=== PATIENT | female | born 2005 | race Caucasian/White ===

== ENCOUNTER 2025-03-28 13:49 | Emergency (ER) | payer MEDICARE, MEDICAID, SELFPAY ==
[2025-03-28 14:12] VITALS: PULSE 78; RESP 20; TEMP 36.5
--- NOTE | 2025-03-28 14:43 | ED_ITS ---
HPI - URI/Sore Throat General Chief Complaint: Upper Respiratory Infection Stated Complaint: Strep throat Source: patient, RN notes reviewed and old records reviewed Mode of arrival: ambulatory Limitations: no limitations History of Present Illness HPI Narrative: 19 year old female presents to [facility] accompanied by father and step mother with complaints stated by family that patient has complained of sore t hroat for the past day. Patient is autistic and has downs syndrome and is uncooperative with exam and vital signs unable to get blood pressure or pulse oximetry on patient. Patient throwing self on floor and kicking and hitting. Father reports that they have had recent strep in the home. Patient has not been eating as well as usual an has had some coughing. MD elicited complaint: sore throat Pertinent past history: asthma Onset (ago): day(s) (1) Severity: mild Description of mucous: clear Able to tolerate fluids by mouth: Yes Related Data Home Medications ?Medication ?Instructions ?Recorded ?Confirmed ?Last Taken ?Type albuterol sulfate 2.5 mg/3 mL mg 03/28/25 Unknown His tory (0.083 %) solution for nebulization albuterol sulfate 90 mcg/actuation inhalation 03/28/25 Unknown History aerosol inhaler budesonide-formoterol HFA 80 inhalation 03/28/25 Unkn own History mcg-4.5 mcg/actuation aerosol inhaler (Breyna) Allergies Allergy/AdvReac Type Severity Reaction Status Date / Time Cephalosporins Allergy Unknown Rash Verified 03/28/25 14:11 Review of Systems Review of Systems: CONSTITUTIONAL: Denies malaise, chills, sweats, or fever. EYES: Denies visual changes, redness, or discharge. ENT: Reports rhinorrhea, congestion, sinus pain, no otalgia and +sore throat. CARDIOVASCULAR: Denies chest pain, palpitations, or edema. RESPIRATORY: Reports no cough.? Denies dyspnea. GASTROINTESTINAL: Denies abdominal pain, nausea, vomiting, diarrhea SKIN: Denies rash or itching. MUSCULOSKELETAL: Denies myalgia. NEUROLOGIC: Denies headache. All systems reviewed & are unremarkable except as noted in HPI and below PMFSH Past Medical History Medical History (Updated 03/29/25 @ 22:32 by Jaquelin Dotson APRN) Abscess of gastrostomy button site Asthma Autism spectrum Down's syndrome Surgical History Surgical History (Updated 03/29/25 @ 22:22 by Jaquelin Dotson APRN) History of cataract surgery Heart valve replaced Social History Social History (Updated 03/29/25 @ 22:20 by Jaquelin Dotson APRN) Living arrangements: with family Gender identity (if verbalized by the patient): Male Comments At time of signature, agree with nursing past medical, surgical, social and family history. There is no relevant family history pertinent to the presenting complaint Exam Narrative: GENERAL: Well-appearing, well-nourished, and in no acute distress. HEAD: Normocephalic EYES: PERRLA, conjunctivae clear ENT: Nares clear, turbinates edematous and erythematous, clear discharge. Mucous membranes moist. TM pearly parham with dull light reflex bilaterally; no tragal tenderness. Oropharynx erythematous without lesions. Tonsils enlarged and with exudate, no drooling, no hoarseness, no trismus, uvula midline.post nasal drainage NECK: Supple. No lymphadenopathy CHEST: Clear to auscultation, breath sounds equal. No wheezing, rhonchi, rales, or stridor. No respiratory distress,cough noted no tachypnea noted or any retractions HEART: Regular rate and rhythm. No murmur heard. SKIN: Warm, dry, no rash. NEURO: Alert and oriented x3. PSYCH: Normal mood and affect uncooperative Course Course Level of Care: Express Care Visit Vital Signs Vital signs: Vital Signs Temperature 36.5 C 03/28/25 14:12 Pulse Rate 78 03/28/25 14:12 Respiratory Rate 20 03/28/25 14:12 Oxygen Delivery Room Air 03/28/25 14:12 Temperature 36.5 C 03/28/25 14:12 Pulse Rate 78 03/28/25 14:12 Respiratory Rate 20 03/28/25 14:12 Oxygen Delivery Room Air 03/28/25 14:12 reviewed MDM MDM Narrative Medical decision making narrative: Patient uncooperative with exam white exudates noted to tonsils with negative strep test culture sent. Will treat with oral antibiotic family report that patient can take Amoxicillin without problems with allergy to cephalosporins noted on record. Antipactory guidance and reasons to seek carei in ED reviewed with father with understanding voiced. Differential Diagnosis Differential Diagnosis: Differential diagnostic considerations for upper respiratory infection include upper respiratory infection, croup, otitis media, sinusitis, viral infection, bronchitis, influenza, pharyngitis, strep, uvulitis.?tonsillitis Lab Data MDM Lab Attestation statement: I personally reviewed the patient's lab results. Lab results narrative: strep screen negative culture sent Labs: Lab Results 03/28/25 Range/Units 14:50 POC Grp A Strep Screen Negative (Negative) reviewed Critical Care Time Critical Care Time Critical Care Time: No Discharge Plan Discharge Clinical Impression: Cough, Tonsillitis Patient Disposition: Home Condition: Stable Instructions: Antibiotic Form, Upper Respiratory Infection in Children (ED), Tonsillitis (ED) Additional Instructions: Increase fluids especially juices and water [id number] cough and cold medicine of your choice for your symptoms Zyrtec Claritin or Scarlet daily Continue your inhaler/nebulizer as directed heat to the face 20-30 minutes 4-6 times a day for pain Salt water gargles, throat lozenges or throat sprays as desired Antibiotic as directed--finished the medication If your symptoms persist, change or worsen significantly before you can contact your personal physician then please, without delay, go to the emergency department for further evaluation. Follow-up with PCP in 7-10 days or sooner if needed Patient Language: Luxembourgish Prescriptions: New amoxicillin 400 mg/5 mL suspension for reconstitution 500 mg PO BID 10 Days Qty: 125 0RF Rx Instructions: family reports that patient can take Amoxicillin without problems No Action albuterol sulfate 2.5 mg /3 mL (0.083 %) solution for nebulization albuterol sulfate 90 mcg/actuation HFA aerosol inhaler INHALATION budesonide-formoterol [Breyna] 80-4.5 mcg/actuation HFA aerosol inhaler INHALATION Follow-up/Referrals: UNKNOWN,DOCTOR [Primary Care Provider] Time of Disposition: 14:47 Quality [place] Coma Scale Eyes: Open Verbal: Nonsensical Speech Motor: Localizes Pain Justino Coma Total Score: 12
[2025-03-28 15:01] LABS: EDSTREPNEGPOS1 Negative (Negative)
--- OUTSIDE RECORDS SUMMARY | 2025-03-28 16:01 | XMS_ITS | Clinical Summary ---
Author Organization [facility] Address [address] [place] [address] Care Team Providers Care Licensed Direct Entry Midwife Name Role Phone Kit Zapien MD Unavailable [phone] Mera Benson OT Unavailable Unavailable Paty Winn MD Unavailable [phone] Diana Mccullough OT Unavailable Unavailable Pauline Gomes MD Primary Care Provider [phone] Allergies Active Allergy Reactions Criticality Noted Date Comments Cephalosporins Rash Medium Reaction: RASH, Medications famotidine (PEPCID) oral suspension 40 mg/5 mL Administer per tube 5 mL (40 mg total) 2 (two) times a day Active silver sulfadiazine (SILVADENE, SSD) 1 % cream Apply 1 g topically daily 05/23/19 21 Active miscellaneous medical supply [facility] [place] 3 inch 3M Transpore Tape , 5 rolls per month to be used around Gastrostomy Button Site 5 each 12 06/20/19 23 Active miscellaneous medical supply liquid Please send Osmolite Enteral formula. 8 cans per day given via enteral feeding pump through G-tube. Okay to substitute Osmolite 1.2 as needed. 11 09/17/19 23 Active nystatin powderIndicatio ns:cutaneous candidiasis Apply to g-button and surrounding skin twice a day x 7 days, then continue to apply daily to prevent yeast re-occurrence. 15 g 3 10/08/19 24 Active albuterol 2.5 mg /3 mL (0.083 %) nebulizer solution Give a treatment before each vest therapy 4-6 times per day during times of illness. 150 mL 1 05/03/19 25 Active multivitamin tablet Administer per tube 1 tablet daily Active polyethylene glycol (MIRALAX) 17 gram/dose bulk powderIndicatio ns:constipation Administer per tube 17 g daily as needed for constipation Active albuterol HFA (PROVENTIL HFA,VENTOLIN HFA,PROAIR HFA) 90 mcg/actuation inhaler GIVE 2 PUFFS WITH SPACER OR 1 NEBULIZER TREATMENT EVERY 4-6 HOURS DURING TIMES OF ILLNESS. 13.4 each 1 03/13/20 25 Active Breyna 80-4.5 mcg/actuation inhalerIndicati ons:Moderate persistent asthma without complication USE 2 PUFFS TWICE DAILY, RINSE MOUTH WITH WATER AFTER USE, DO NOT SWALLOW 30.9 each 1 03/20/20 25 Active budesonide-form oteroL (Symbicort) 80-4.5 mcg/actuation inhalerIndicati ons:Moderate persistent asthma without complication Inhale 2 puffs 2 (two) times a day Rinse mouth with water after use. Do not swallow. 1 each 2 12/22/19 25 2024 Discontinued albuterol HFA (PROVENTIL HFA,VENTOLIN HFA,PROAIR HFA) 90 mcg/actuation inhaler GIVE 2 PUFFS WITH SPACER OR 1 NEBULIZER TREATMENT EVERY 4-6 HOURS DURING TIMES OF ILLNESS. 13.4 each 1 12/28/19 25 2024 Discontinued amoxicillin-cla vulanate (AUGMENTIN-ES) suspension 600-42.9 mg/5 mL Administer per tube 6.9 mL (825 mg of amoxicillin total) 2 (two) times a day for 10 days 7 ml twice a day 138 mL 03/15/20 25 2024 Active Problems Problem Noted Date Diagnosed Date Myopia of both eyes with astigmatism 03/01/2024 Anisometropia 03/01/2024 Hyperactive behavior 08/12/2022 08/12/2022 Developmental disability 08/12/2022 023 Attention deficit hyperactivity disorder 023 08/12/2022 At risk for hypothyroidism 05/16/2022 Pseudophakia of both eyes 05/06/2022 Hyperopia of both eyes 05/06/2022 Dehydration 03/31/2021 History of adrenal insufficiency 12/10/2020 Assessment & Plan (01/05/2021 3:08 PM CDT): See A&P for pneumonia. Assessment & Plan (01/04/2021 5:07 PM CDT): See A&P for pneumonia. Assessment & Plan (01/03/2021 12:11 PM CDT): See A&P for pneumonia. Assessment & Plan (01/02/2021 7:32 PM CDT): See A&P for pneumonia. Assessment & Plan (01/01/2021 7:57 PM CDT): See A&P for pneumonia. 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 Parents have been keeping site open to air and cleaning it with gauze covering it during admission. Currently, no drainage appreciated with patient's site initially covered during morning's exam and found open to air. ENT consulted Assessment & Plan (01/16/2020 1:43 PM CDT): Patient decannulated in 2015 with subsequent small TEF noted in 06/2019. Parents have been keeping site open to air and cleaning it with gauze covering it during admission. Currently, no drainage appreciated with patient's site initially covered during morning's exam and found open to air - ENT c/s for further evaluation and care Assessment & Plan (01/15/2020 2:17 PM CDT): Patient decannulated in 2015 with subsequent small TEF noted in 06/2019. Parents have been keeping site open to air and cleaning it with gauze covering it during admission. Currently, no drainage appreciated with patient's site initially covered during morning's exam and found open to air during encounter during this afternoon. - ENT c/s for further evaluation and care. Constipation 01/15/2020 Assessment & Plan (06/12/2020 10:22 AM RESEARCH & INSIGHTS EXECUTIVE): See a/p above Assessment & Plan (06/11/2020 7:01 AM RESEARCH & INSIGHTS EXECUTIVE): See a/p above Assessment & Plan (06/09/2020 7:51 AM RESEARCH & INSIGHTS EXECUTIVE): See a/p above Assessment & Plan (06/08/2020 11:00 AM RESEARCH & INSIGHTS EXECUTIVE): See a/p above Assessment & Plan (01/17/2020 10:57 AM CDT): Now with diarrhea secondary to formula change and antibitoics - Hold home colace Assessment & Plan (01/16/2020 1:49 PM CDT): Now with diarrhea, hold home colace Secondary adrenal insufficiency 05/25/2019 Assessment & Plan (01/10/2020 10:44 AM CDT): Continue physiologic dosing, wean per pharmacy. Continue wean plan every 3 days per pharmacy recommendations. Does not require ACTH stim test prior to discharge, but does require refills for stress dose steroids. Family has previously completed stress dose teaching. - Follow up with endo after discharge Assessment & Plan (01/09/2020 2:47 PM CDT): Continue physiologic dosing, wean per pharmacy. Continue wean plan every 3 days per pharmacy recommendations. Does not require ACTH stim test prior to discharge, but does require refills for stress dose steroids. Family has previously completed stress dose teaching. - Follow up with endo after discharge Assessment & Plan (01/08/2020 3:09 PM CDT): Continue physiologic dosing, wean per pharmacy. Continue wean plan every 3 days per pharmacy recommendations. Does not require ACTH stim test prior to discharge, but does require refills for stress dose steroids. Family has previously completed stress dose teaching. - Contact endo before discharge Assessment & Plan (01/07/2020 2:23 PM CDT): Continue physiologic dosing, wean per pharmacy. Continue wean plan every 3 days per pharmacy recommendations. Does not require ACTH stim test prior to discharge, but does require refills for stress dose steroids. Family has previously completed stress dose teaching. - Contact endo before discharge Assessment & Plan (01/06/2020 1:46 PM CDT): Continue physiologic dosing, wean per pharmacy. Continue wean plan every 3 days per pharmacy recommendations. - ACTH stim test prior to discharge Assessment & Plan (01/05/2020 12:47 PM CDT): Continue physiologic dosing, wean per pharmacy. Next wean due 01/05. Assessment & Plan (12/31/2019 10:46 AM CDT): Continue physiologic dosing, wean per pharmacy. Assessment & Plan (12/30/2019 5:35 PM CDT): Continue physiologic dosing, wean per pharmacy. Assessment & Plan (12/29/2019 1:37 PM CDT): Patient with secondary adrenal insufficiency. S/p stress dose hydrocortisone. Now physiologic, PO HCT 5 mg/m2 (12/28- ) - TSH, Assessment & Plan (05/25/2019 2:12 PM RESEARCH & INSIGHTS EXECUTIVE): 13 yo with a history of Trisomy 21, AV canal and PDA s/p repair, CLD and tracheomalacia previously trach-dependent, LADONNA, and prior ECMO cannulation in 2017 2/2 septic shock and respiratory failure admitted for respiratory failure requiring intubation with concern for septic shock. Extubated 2/3. Corey had history of chronic inhaled steroid use that likely have caused the HPA axis suppression. I recommend to use stress dose of hydrocortisone at the time of illness. Please use 20 mg PO TID. In addition caregivers will need education on Solucortef teaching prior to discharge. Corey has history of abnormal thyroid function in the past. Please obtain thyroid studies prior to discharge. Thank you for allowing us to participate in Misti's care. If you have any questions, please do Not hesitate to contact us. Adrenal insufficiency 05/23/2019 Assessment & Plan (01/17/2020 10:31 AM CDT): See plan for respiratory failure Assessment & Plan (01/16/2020 1:48 PM CDT): See plan for respiratory failure Assessment & Plan (07/20/2019 10:52 AM CDT): Hx of adrenal insufficiency requiring stress dose steroids when ill. Cortisol level 6.2 in ED around 7 pm 07/17. Discussed with endocrine. If pt remains afebrile and continues to improve clinically, no stress dose hydrocortisone needed. Assessment & Plan (05/25/2019 11:57 AM RESEARCH & INSIGHTS EXECUTIVE): Pt required steroids when acutely ill in the PICU. On 05/06, Cortisol <1.5. s/p Physiologic steroids (05/17-2); stress dose (05/10-2), (05/06-05/09); physiologic (05/09-05/10). - f/u Endo recs - completed low dose ACTH stim test 05/24 - obtain ACTH level, TSH, free T4 today Assessment & Plan (05/24/2019 10:21 AM RESEARCH & INSIGHTS EXECUTIVE): Pt required steroids when acutely ill in the PICU. On 05/06, Cortisol <1.5. s/p Physiologic steroids (05/17-2); stress dose (05/10-2/), (05/06-05/09); physiologic (05/09-05/10). - Endo c/s - low dose ACTH stim test 05/24 Assessment & Plan (05/23/2019 5:52 PM RESEARCH & INSIGHTS EXECUTIVE): Pt required steroids when acutely ill in the PICU. On 05/06, Cortisol <1.5. s/p Physiologic steroids (05/17-2); stress dose (05/10-2/), (05/06-05/09); physiologic (05/09-05/10). - low dose ACTH stim test 05/24 Childhood behavior problems 05/22/2019 Assessment & Plan (06/12/2020 10:22 AM RESEARCH & INSIGHTS EXECUTIVE): - home valproate 250 mg PO TID (mood stabilizer) - Use of non violent restraints (ie Mittens) to prevent removal of supplemental oxygen or G-tube Assessment & Plan (06/11/2020 7:01 AM RESEARCH & INSIGHTS EXECUTIVE): - home valproate 250 mg PO TID (mood stabilizer) - Use of non violent restraints (ie Mittens) to prevent removal of supplemental oxygen or G-tube Assessment & Plan (06/10/2020 6:57 AM RESEARCH & INSIGHTS EXECUTIVE): - home valproate 250 mg PO TID (mood stabilizer) - Use of non violent restraints (ie Mittens) to prevent removal of supplemental oxygen or G-tube Assessment & Plan (06/09/2020 7:51 AM RESEARCH & INSIGHTS EXECUTIVE): - home valproate 250 mg PO TID (mood stabilizer) - Use of non violent restraints (ie Mittens) to prevent removal of supplemental oxygen or G-tube Assessment & Plan (06/08/2020 10:56 AM RESEARCH & INSIGHTS EXECUTIVE): - home valproate 250 mg PO TID (mood stabilizer) - Use of non violent restraints (ie Mittens) to prevent removal of supplemental oxygen or G-tube Assessment & Plan (07/20/2019 10:58 AM CDT): Hx of trisomy 21 and developmental delay. Has ongoing issues with trying to get out of bed and pulling on medical equipment. - home depakote (for behavior, no seizure hx) - 1:1 sitter - [place] bed, mittens on bilateral hands Assessment & Plan (06/17/2019 1:42 PM RESEARCH & INSIGHTS EXECUTIVE): T21, Developmental Delay - Home depakote (for behaviors, no seizure hx) - s/p Precedex (06/07-; 06/11-06/12) - 1:1 sitter - Benadryl 25mg via gtube PRN for agitation (may give 2nd dose for total of 50mg) Assessment & Plan (05/25/2019 11:56 AM RESEARCH & INSIGHTS EXECUTIVE): Pt with trisomy 21. Pt continues to try to pull out nasal canula. Requires 1:1 sitter to provide redirection when pt tries to pull out nasal canula. - home Depakene 125 mg AM/PM, 250 mg qHS (for behavior) Assessment & Plan (05/24/2019 10:22 AM RESEARCH & INSIGHTS EXECUTIVE): Pt with trisomy 21. Pt continues to try to pull out nasal canula. Requires 1:1 sitter to provide redirection when pt tries to pull out nasal canula. - home Depakene 125 mg AM/PM, 250 mg qHS (for behavior) Assessment & Plan (05/23/2019 11:49 AM RESEARCH & INSIGHTS EXECUTIVE): Pt with trisomy 21. Pt continues to try to pull out nasal canula. Requires 1:1 sitter to provide redirection when pt tries to pull out nasal canula. - home Depakene 125 mg AM/PM, 250 mg qHS (for behavior) Assessment & Plan (05/22/2019 1:33 PM RESEARCH & INSIGHTS EXECUTIVE): Pt with trisomy 21. - home Depakene 125 mg AM/PM, 250 mg qHS (for behavior) Gastrostomy tube dependent ([facility]) 05/22/2019 Assessment & Plan (01/05/2021 3:07 PM CDT): See A&P for pneumonia. Assessment & Plan (01/04/2021 5:06 PM CDT): See A&P for pneumonia. Assessment & Plan (01/03/2021 12:11 PM CDT): See A&P for pneumonia. Assessment & Plan (01/02/2021 7:31 PM CDT): See A&P for pneumonia. Assessment & Plan (01/01/2021 7:57 PM CDT): See A&P for pneumonia. Assessment & Plan (06/11/2020 7:01 AM RESEARCH & INSIGHTS EXECUTIVE): Will continue home bolus feeds as follows: - 8am: Osmolite 1.0, 2 cans + 240 ml water - 12pm: Osmolite 1.0, 2 cans + 240 ml water - 4pm: Osmolite 1.0, 2 cans + 240 ml water - 8pm: Osmolite 1.0, 1 can + 240 ml water - prune juice BID, miralax 17g qd - Pepcid 20mg BID Assessment & Plan (06/10/2020 7:48 AM RESEARCH & INSIGHTS EXECUTIVE): Will continue home bolus feeds as follows: - 8am: Osmolite 1.0, 2 cans + 240 ml water - 12pm: Osmolite 1.0, 2 cans + 240 ml water - 4pm: Osmolite 1.0, 2 cans + 240 ml water - 8pm: Osmolite 1.0, 1 can + 240 ml water - prune juice BID, miralax 17g qd - Pepcid 20mg BID Due to absence of H2O from feeds yesterday patient is mildly dehydrated. Please administer 2 boluses of H2O through her G tube today to replete. Give 480ml after her 8 am feed over 1-2 hours. Give 480 ml after her noon feed over 1-2 hours. Will closely monitor hydration status throughout the day. Assessment & Plan (06/09/2020 7:51 AM RESEARCH & INSIGHTS EXECUTIVE): Patient tolerating home feeds without issue. Will continue home bolus feeds as follows: - 8am: Osmolite 1.0, 2 cans + 240 ml water - 12pm: Osmolite 1.0, 2 cans + 240 ml water - 4pm: Osmolite 1.0, 2 cans + 240 ml water - 8pm: Osmolite 1.0, 1 can + 240 ml water - prune juice BID, miralax 17g qd - Pepcid 20mg BID Assessment & Plan (06/08/2020 10:56 AM RESEARCH & INSIGHTS EXECUTIVE): Patient tolerating home feeds without issue. Will continue home bolus feeds as follows: - 8am: Osmolite 1.0, 2 cans + 240 ml water - 12pm: Osmolite 1.0, 2 cans + 240 ml water - 4pm: Osmolite 1.0, 2 cans + 240 ml water - 8pm: Osmolite 1.0, 1 can + 240 ml water - prune juice BID, miralax 17g qd - Pepcid 20mg BID Assessment & Plan (01/17/2020 10:30 AM CDT): Continue home medication and regimen - G tube feeds qid (2 cans osmolite + 240 ml H2O tid, 1 can osmolite + 240 ml H2O daily) - Lansoprazole Assessment & Plan (01/16/2020 1:44 PM CDT): Continue home medication and regimen - G tube feeds qid (2 cans osmolite + 240 ml H2O tid, 1 can osmolite + 240 ml H2O daily) - Lansoprazole Assessment & Plan (01/15/2020 2:23 PM CDT): Continue home medication and regimen - G tube feeds qid (2 cans osmolite + 240 ml H2O tid, 1 can osmolite + 240 ml H2O daily) - Lansoprazole Assessment & Plan (01/10/2020 10:48 AM CDT): Continue G tube feeds, switch to bolus feeds with osmolite. 2 cans + 240ml water for 3 feeds; 1 can with +240ml water for 1 feed - Prune juice BID lactulose 30ml q8h, Docusate BID - Prevacid 15mg daily - KCL 20 mEq wean to daily today - RFP in am - Mon/Thurs weights Assessment & Plan (01/09/2020 2:50 PM CDT): Continue G tube feeds, will touch base with family tomorrow about switching to osmolite - Promote 105mL/hr + 25mL/hr free water for 16h - Prune juice BID lactulose 30ml q8h, Docusate BID - Prevacid 15mg daily - KCL 20 mEq q8hr - Mon/Thurs weights Assessment & Plan (01/08/2020 3:10 PM CDT): Continue G tube feeds, will touch base with family tomorrow about switching to osmolite - Promote 105mL/hr + 25mL/hr free water for 16h - Prune juice BID lactulose 30ml q8h, Docusate BID - Prevacid 15mg daily - KCL 20 mEq q8hr - Mon/urs weights Assessment & Plan (01/07/2020 2:26 PM CDT): Continue G tube feeds - Promote 105mL/hr + 25mL/hr free water for 16h - Prune juice BID lactulose 30ml q8h, Docusate BID - Prevacid 15mg daily - KCL 20 mEq q8hr - Daily weights Assessment & Plan (01/06/2020 1:48 PM CDT): Continue G tube feeds - Promote 105mL/hr + 25mL/hr free water for 16h - Prune juice BID lactulose 30ml q8h, Docusate BID - Prevacid 15mg daily - KCL 20 mEq q8hr - Daily weights Assessment & Plan (01/05/2020 12:53 PM CDT): Continue G tube feeds - Promote 105mL/hr + 25mL/hr free water for 16h - Prune juice BID lactulose 30ml q8h, Docusate BID - Prevacid 15mg daily - KCL 20 mEq q8hr Assessment & Plan (12/31/2019 10:46 AM CDT): Continue G tube feeds - 84 mL/hr + 20mL/hr H2O for 24 hours - PO KCL BID - Prevacid 15mg daily - Bowel regimen: Docusate BID, Lactulose TID Assessment & Plan (12/30/2019 5:34 PM CDT): Continue G tube feeds - 84 mL/hr + 20mL/hr H2O for 24 hours - PO KCL BID - Prevacid 15mg daily - Bowel regimen: Docusate BID, Lactulose TID Assessment & Plan (07/20/2019 10:54 AM CDT): Tolerating home g-tube feeds. No acute concerns. - Pediasure enteral 1.0 home feeds with 240 ml flush x4 - prevacid while here (omeprazole daily at home) Assessment & Plan (06/17/2019 1:43 PM RESEARCH & INSIGHTS EXECUTIVE): - Home feeds: Pediasure 2 cans TID (08, 12, 20) and 1 can at 16, + 240ml H20 flush with each feed - home omeprazole --> lansoprazole while IP Assessment & Plan (05/25/2019 11:59 AM RESEARCH & INSIGHTS EXECUTIVE): - Home g-tube feeds: Pediasure 2 cans BID, 1 can BID, 240mL H2O with each - Home Docusate, Senna BID, Lactulose QID - Lansoprazole daily - daily wts Assessment & Plan (05/24/2019 10:23 AM RESEARCH & INSIGHTS EXECUTIVE): - Home g-tube feeds: Pediasure 2 cans BID, 1 can BID, 240mL H2O with each - Home Docusate, Senna BID, Lactulose QID - Lansoprazole daily Assessment & Plan (05/23/2019 11:50 AM RESEARCH & INSIGHTS EXECUTIVE): - Home g-tube feeds: Pediasure 2 cans BID, 1 can BID, 240mL H2O with each - Home Docusate, Senna BID, Lactulose QID - Lansoprazole daily Assessment & Plan (05/22/2019 1:34 PM RESEARCH & INSIGHTS EXECUTIVE): - Home g-tube feeds: Pediasure 2 cans BID, 1 can BID, 240mL H2O with each - Home Docusate, Senna BID, Lactulose QID - Lansoprazole daily Gastroesophageal reflux disease without esophagi tis 08/23/2018 08/12/2022 Moderate persistent asthma without complication 02/10/2018 Assessment & Plan (05/25/2019 11:59 AM RESEARCH & INSIGHTS EXECUTIVE): - Albuterol 2.5 mg q4h - continue home Symbicort BID Assessment & Plan (05/24/2019 10:23 AM RESEARCH & INSIGHTS EXECUTIVE): - Albuterol 2.5 mg q4h - continue home Symbicort BID Assessment & Plan (05/23/2019 11:50 AM RESEARCH & INSIGHTS EXECUTIVE): - Albuterol 2.5 mg q4h - continue home Symbicort BID Assessment & Plan (05/22/2019 1:28 PM RESEARCH & INSIGHTS EXECUTIVE): - Albuterol 2.5 mg q4h - continue home Symbicort BID Global developmental delay 11/18/2016 Assessment & Plan (01/17/2020 10:28 AM CDT): History of hospital delirium, disorientation on top of chronic issues of autism, developmental delay, communication barriers, and history of self harm behaviors. Still having persistent agitation and will follow up with psychiatry outpatient. - Depakote 125mg am and noon, 250 mg qhs Melatonin qHS - 1:1 Sitter, [place] bed, mittens - Tylenol PRN - Risperidone 1mg nightly inpatient (wean outpatient with schedule below) - Follow up with [facility] psychiatry outpatient Week 1 after discharge: risperidone 1 mg nightly Week 2 after discharge: risperidone 0.5 mg nightly Week 3 after discharge: risperidone 0.25 mg nightly Week 4 after discharge: stop Assessment & Plan (01/16/2020 1:44 PM CDT): History of hospital delirium, disorientation on top of chronic issues of autism, developmental delay, communication barriers, and history of self harm behaviors. Still having persistent agitation and will follow up with psychiatry outpatient. - Depakote 250 mg qhs Melatonin qHS- clarify home Depakote regimen at present - 1:1 Sitter, [place] bed, mittens - Tylenol PRN - Risperidone 1mg nightly inpatient (wean outpatient with schedule below) - Follow up with [facility] psychiatry outpatient Week 1 after discharge: risperidone 1 mg nightly Week 2 after discharge: risperidone 0.5 mg nightly Week 3 after discharge: risperidone 0.25 mg nightly Week 4 after discharge: stop Assessment & Plan (01/15/2020 2:26 PM CDT): History of hospital delirium, disorientation on top of chronic issues of autism, developmental delay, communication barriers, and history of self harm behaviors. Still having persistent agitation and will follow up with psychiatry outpatient. - Depakote 250 mg qhs Melatonin qHS - 1:1 Sitter, [place] bed, mittens - Tylenol PRN - Risperidone 1mg nightly (wean outpatient with schedule below) - Follow up with [facility] psychiatry outpatient Week 1 after discharge: risperidone 1 mg nightly Week 2 after discharge: risperidone 0.5 mg nightly Week 3 after discharge: risperidone 0.25 mg nightly Week 4 after discharge: stop Assessment & Plan (01/10/2020 10:45 AM CDT): History of hospital delirium, disorientation on top of chronic issues of autism, developmental delay, communication barriers, and history of self harm behaviors. Still having persistent agitation and will follow up with psychiatry outpatient. - Depakote 125mg q6hrs Melatonin qHS - 1:1 Sitter, [place] bed, mittens - Tylenol PRN - Risperidone 1mg nightly (wean outpatient) - Clonidine 0.1mg prn for sleep, agitation - Continue consult to psychiatry - Follow up with [facility] psychiatry outpatient Assessment & Plan (01/09/2020 2:49 PM CDT): History of hospital delirium, disorientation on top of chronic issues of autism, developmental delay, communication barriers, and history of self harm behaviors. Still having persistent agitation and and may benefit from psychiatric evaluation. - Depakote 125mg q6hrs Melatonin qHS - 1:1 Sitter, [place] bed, mittens - Tylenol PRN - Risperidone 1mg nightly - Clonidine 0.1mg prn for sleep, agitation - Continue consult to psychiatry - Follow up with [facility] psychiatry outpatient Assessment & Plan (01/08/2020 3:10 PM CDT): History of hospital delirium, disorientation on top of chronic issues of autism, developmental delay, communication barriers, and history of self harm behaviors. Still having persistent agitation and and may benefit from psychiatric evaluation. - Depakote 125mg q6hrs Melatonin qHS - 1:1 Sitter, [place] bed, mittens - Tylenol PRN - Risperidone 1mg nightly - Clonidine 0.1mg prn for sleep, agitation - Continue consult to psychiatry Assessment & Plan (01/07/2020 2:26 PM CDT): History of hospital delirium, disorientation on top of chronic issues of autism, developmental delay, communication barriers, and history of self harm behaviors. Still having persistent agitation and and may benefit from psychiatric evaluation. - Depakote 125mg q6hrs Melatonin qHS - 1:1 Sitter, [place] bed, mittens - Tylenol PRN - Risperidone 1mg nightly - Clonidine 0.1mg prn for sleep, agitation - Continue consult to psychiatry Assessment & Plan (01/06/2020 1:49 PM CDT): Limited cooperation with exam, see above. Contributes to hospital delirium, disorientation. Still having persistent agitation and and may benefit from psychiatric evaluation. - Depakote 125mg q6hrs Risperidone 0.25mg BID Melatonin qHS - 1:1 Sitter, [place] bed, mittens - Tylenol PRN - HOLD risperidone wean - Consult to psychiatry for residential plan Assessment & Plan (01/05/2020 12:52 PM CDT): Limited cooperation with exam, see above. 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 Echo in 06/30 stable with mild MR and trivial TR Assessment & Plan (01/09/2020 2:50 PM CDT): History of complete AV canal s/p repair. Echo in 3/20 stable with mild MR and trivial TR Assessment & Plan (01/08/2020 3:10 PM CDT): History of complete AV canal s/p repair. Echo in 3/20 stable with mild MR and trivial TR Assessment & Plan (01/07/2020 2:26 PM CDT): History of complete AV canal s/p repair. Echo in 3/20 stable with mild MR and trivial TR Assessment & Plan (01/06/2020 1:48 PM CDT): History of complete AV canal s/p repair. Echo in 3/20 stable with mild MR and trivial TR Assessment & Plan (01/05/2020 12:49 PM CDT): History of complete AV canal s/p repair. Echo in 3/20 stable with mild MR and trivial TR Assessment & Plan (12/31/2019 10:47 AM CDT): History of complete AV canal s/p repair. Echo in 3/20 stable with mild MR and trivial TR Assessment & Plan (05/25/2019 11:57 AM RESEARCH & INSIGHTS EXECUTIVE): Hx of AV canal and PDA s/p repair. - ECHO 05/03: Stable - Mild MR, trivial TR. Mildly dilated RA/RV with nl RV and LV function - EKG 05/05 without significant change from baseline - d/c lasix today Assessment & Plan (05/24/2019 10:22 AM RESEARCH & INSIGHTS EXECUTIVE): Hx of AV canal and PDA s/p repair. - ECHO 05/03: Stable - Mild MR, trivial TR. Mildly dilated RA/RV with nl RV and LV function - EKG 05/05 without significant change from baseline - wean lasix to 20 mg daily today Assessment & Plan (05/23/2019 5:53 PM RESEARCH & INSIGHTS EXECUTIVE): Hx of AV canal and PDA s/p repair. - ECHO 05/03: Stable - Mild MR, trivial TR. Mildly dilated RA/RV with nl RV and LV function - EKG 05/05 without significant change from baseline - wean lasix to 20 mg daily Assessment & Plan (05/22/2019 1:36 PM RESEARCH & INSIGHTS EXECUTIVE): Hx of AV canal and PDA s/p repair. - ECHO 05/03: Stable - Mild MR, trivial TR. Mildly dilated RA/RV with nl RV and LV function - EKG 05/05 without significant change from baseline Obstructive sleep apnea syndrome 03/24/2008 Assessment & Plan (01/17/2020 10:30 AM CDT): Abnormal sleep study on 10/31/15, confounded by difficulty tolerating testing and suboptimal results but found evidence of at least mild obstructive sleep apnea (OAHI 3.1/hr, OAHI 2.7/hr), intermittent mild-moderate oxygen desaturations (average SpO2 93%, isidro 82%), relative hypoxemia, and very poor sleep efficiency (SE 28%). No desaturations overnight, transition to RA. Has not tolerated CPAP in the past. Will continue to monitor O2 saturations off O2 for at least 48 hours prior to DC Assessment & Plan (01/16/2020 1:42 PM CDT): Abnormal sleep study on 10/31/15, confounded by difficulty tolerating testing and suboptimal results but found evidence of at least mild obstructive sleep apnea (OAHI 3.1/hr, OAHI 2.7/hr), intermittent mild-moderate oxygen desaturations (average SpO2 93%, isidro 82%), relative hypoxemia, and very poor sleep efficiency (SE 28%). No desaturations overnight, transition to RA and consider 1L NC nightly as needed for LADONNA. Has not tolerated CPAP in the past. Will continue to monitor Assessment & Plan (01/15/2020 1:59 PM CDT): Abnormal sleep study on 10/31/15, confounded by difficulty tolerating testing and suboptimal results but found evidence of at least mild obstructive sleep apnea (OAHI 3.1/hr, OAHI 2.7/hr), intermittent mild-moderate oxygen desaturations (average SpO2 93%, isidro 82%), relative hypoxemia, and very poor sleep efficiency (SE 28%). No desaturations overnight, on 2 L NC. Has not tolerated CPAP in the past. Will continue to monitor Assessment & Plan (01/10/2020 10:44 AM CDT): No desaturations overnight and patient doesn't tolerate CPAP overnight. Assessment & Plan (01/09/2020 2:48 PM CDT): No desaturations overnight and patient doesn't tolerate CPAP overnight. Assessment & Plan (01/08/2020 3:09 PM CDT): No desaturations overnight and patient doesn't tolerate CPAP overnight. Assessment & Plan (01/07/2020 2:24 PM CDT): No desaturations overnight and patient doesn't tolerate CPAP overnight. Assessment & Plan (01/06/2020 1:46 PM CDT): No desaturations overnight and patient doesn't tolerate CPAP overnight. Assessment & Plan (01/05/2020 12:47 PM CDT): No desaturations overnight and patient doesn't tolerate CPAP overnight. 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 Down syndrome 03/24/2008 Assessment & Plan (01/10/2020 10:45 AM CDT): See acute on chronic resp failure Assessment & Plan (01/09/2020 2:50 PM CDT): See acute on chronic resp failure Assessment & Plan (01/08/2020 3:10 PM CDT): See acute on chronic resp failure Assessment & Plan (01/07/2020 2:26 PM CDT): See acute on chronic resp failure Assessment & Plan (01/06/2020 1:48 PM CDT): See acute on chronic resp failure Assessment & Plan (01/05/2020 12:49 PM CDT): See acute on chronic resp failure Assessment & Plan (12/31/2019 10:44 AM CDT): See acute on chronic resp failure Assessment & Plan (12/30/2019 5:33 PM CDT): See acute on chronic resp failure Assessment & Plan (07/20/2019 10:55 AM CDT): Stable, no acute concerns. Resolved Problems Problem Noted Date Diagnosed Date Resolved Date Acute hypoxemic respiratory failure 12/10/2020 06/16/2022 Assessment & Plan (01/05/2021 3:07 PM CDT): See A&P for pneumonia. Assessment & Plan (01/04/2021 5:06 PM CDT): See A&P for pneumonia. Assessment & Plan (01/03/2021 12:11 PM CDT): See A&P for pneumonia. Assessment & Plan (01/02/2021 7:32 PM CDT): See A&P for pneumonia. Assessment & Plan (01/01/2021 7:57 PM CDT): See A&P for pneumonia. Assessment & Plan (12/15/2020 2:49 PM CDT): 15 y.o. female with acute on chronic respiratory failure in the setting of presumed PNA, based on fevers, hypoxemia, CBC results, and persistent opacification on CXR. Has required escalated respiratory support and is now currently intubated. CXRs with improved upper airway aeration but persistent left lower lobe opacity which has been seen during illnesses in the past on imaging. With interval imaging while well showing improved aeration in this lobe, it is likely a dependent area of secretion and subsequent atelectasis. 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 Prior to repeat sleep study it is recommended by ENT that she have outpatient tracheocutaneous fistula closure and DLB. Once tracheocutaneous fistula is closed then she should have a swallow study and repeat sleep study. - Seen by ENT, defer intervention to outpatient setting as patient is clinically ill Assessment & Plan (06/11/2020 11:24 AM RESEARCH & INSIGHTS EXECUTIVE): Last sleep study: 10/31/15 (has not tolerated CPAP in the past). Prior to repeat sleep study it is recommended by ENT that she have outpatient tracheocutaneous fistula closure and DLB. Once tracheocutaneous fistula is closed then she should have a swallow study and repeat sleep study. - Seen by ENT, defer intervention to outpatient setting as patient is clinically ill Assessment & Plan (06/09/2020 7:51 AM RESEARCH & INSIGHTS EXECUTIVE): - Seen by ENT, defer intervention to outpatient setting as patient is clinically ill Assessment & Plan (06/08/2020 11:00 AM RESEARCH & INSIGHTS EXECUTIVE): - Seen by ENT, defer intervention to outpatient setting as patient is clinically ill Aspiration pneumonia 01/18/2020 020 MRSA pneumonia 12/15/2019 01/05/2020 Left lower lobe pneumonia 12/06/2019 Assessment & Plan (01/10/2020 10:44 AM CDT): - Continue respiratory regimen with vest q4 - Finished treatment with Vancomycin this morning - Discontinue PICC Assessment & Plan (01/09/2020 2:49 PM CDT): - Continue respiratory regimen with vest q4 - Continue treatment with Ceftriaxone (finishes today) and Vancomycin (cornebacterium susceptible), covering broadly (will complete 01/08) Assessment & Plan (01/08/2020 3:10 PM CDT): - Continue respiratory regimen with vest q4 - Continue treatment with Ceftriaxone and Vancomycin (cornebacterium susceptible), covering broadly (will complete 01/08) Assessment & Plan (01/07/2020 2:24 PM CDT): - Continue respiratory regimen with vest q4 - Continue treatment with Ceftriaxone and Vancomycin (cornebacterium susceptible), covering broadly (will complete 01/07) Assessment & Plan (01/06/2020 1:47 PM CDT): - Continue respiratory regimen with vest q4 - Continue treatment with Ceftriaxone and Vancomycin (cornebacterium susceptible), covering broadly - Hold cough assist since not helping Assessment & Plan (01/05/2020 12:48 PM CDT): - Continue respiratory regimen with vest q4 - Continue treatment with Ceftriaxone and Vancomycin (cornebacterium susceptible) - Hold cough assist since not helping Septic shock 12/06/2019 01/25/2020 Acute respiratory failure wi th hypoxia and hypercapnia (CMS/HCC) 12/06/2019 03/05/2021 COVID-19 12/06/2019 03/05/2021 Assessment & Plan (01/10/2020 10:45 AM CDT): Patient recovering from acute resp failure secondary to COVID 19. No longer concerns for active viral transmission. Now on RA - Continue vest treatments every 4 hours Assessment & Plan (01/09/2020 2:50 PM CDT): Patient recovering from acute resp failure secondary to COVID 19. No longer concerns for active viral transmission. Now on RA - Continue vest treatments every 4 hours Assessment & Plan (01/08/2020 3:10 PM CDT): Patient recovering from acute resp failure secondary to COVID 19. No longer concerns for active viral transmission. Now on RA - Continue vest treatments every 4 hours Assessment & Plan (01/07/2020 2:26 PM CDT): Patient recovering from acute resp failure secondary to COVID 19. No longer concerns for active viral transmission. Now on RA - Continue vest treatments every 4 hours Assessment & Plan (01/06/2020 1:48 PM CDT): Patient recovering from acute resp failure secondary to COVID 19. No longer concerns for active viral transmission. Now on RA - Continue vest treatments every 4 hours Assessment & Plan (01/05/2020 12:50 PM CDT): Patient recovering from acute resp failure secondary to COVID 19. No longer concerns for active viral transmission. Now on RA - Continue vest treatments every 4 hours Assessment & Plan (12/31/2019 10:44 AM CDT): Patient recovering from acute resp failure secondary to COVID 19 - S/p Ceftriaxone (12/18- 12/22) x 5 days, bactrim (12/15-12/18) -+COVID-19, febrile 12/15-12/17 - 9/2 tracheal aspirate MRSA, s/p vancomycin bactrim 12/10-12/16 -S/p Levaquin 12/05-12/12 & 12/16-/, Remdesivir 12/05-12/09. - 12/18 Urine culture (final no growth), blood culture (final no growth) Assessment & Plan (12/30/2019 5:35 PM CDT): Patient recovering from acute resp failure secondary to COVID 19 - discontinue COVID labs (TEG, ferritin) - S/p Ceftriaxone (12/18- 12/22) x 5 days, bactrim (12/15-12/18) -+COVID-19, persistently febrile 12/15-12/17 - 9/2 tracheal aspirate MRSA, s/p vancomycin bactrim 12/10-12/16 -S/p Levaquin 12/05-12/12 & 12/16-/, Remdesivir 12/05-8/29. - 12/18 Urine culture (final no growth), blood culture (final no growth) Sleep disturbance 06/12/2019 06/16/2022 Tracheitis 05/22/2019 01/25/2020 Assessment & Plan (05/25/2019 11:59 AM RESEARCH & INSIGHTS EXECUTIVE): TA 05/12 grew Corynebacterium striatum. s/p Vanc x5 days (05/12-05/17), Levaquin (05/02-05/09, 05/12-05/15), Vanc (05/02-05/03). Continue to monitor. Assessment & Plan (05/24/2019 10:23 AM RESEARCH & INSIGHTS EXECUTIVE): TA 05/12 grew Corynebacterium striatum. s/p Vanc x5 days (05/12-05/17), Levaquin (05/02-05/09, 05/12-05/15), Vanc (05/02-05/03). Continue to monitor. Assessment & Plan (05/23/2019 11:50 AM RESEARCH & INSIGHTS EXECUTIVE): TA 05/12 grew Corynebacterium striatum. s/p Vanc x5 days (05/12-05/17), Levaquin (05/02-05/09, 05/12-05/15), Vanc (05/02-05/03). Continue to monitor. Assessment & Plan (05/22/2019 1:26 PM RESEARCH & INSIGHTS EXECUTIVE): TA 05/12 grew Corynebacterium striatum. s/p Vanc x5 days (05/12-05/17), Levaquin (05/02-05/09, 05/12-05/15), Vanc (05/02-05/03). Continue to monitor. Drug habituation ([facility]) 05/22/2019 1 06/01/2020 Assessment & Plan (05/25/2019 11:58 AM RESEARCH & INSIGHTS EXECUTIVE): S/p intubation. S/p precedex. JOANN scores 0. - s/p Morphine (d/c 05/24) - PRN PO ativan 2mg q4h - JOANN scores q4h Assessment & Plan (05/24/2019 10:22 AM RESEARCH & INSIGHTS EXECUTIVE): S/p intubation. S/p precedex. JOANN scores 0. - d/c Morphine today - PRN PO ativan 2mg q4h - JOANN scores q4h Assessment & Plan (05/23/2019 11:50 AM RESEARCH & INSIGHTS EXECUTIVE): S/p intubation. S/p precedex. - wean to Morphine 5mg q12h today - PRN PO ativan 2mg q4h - JOANN scores q4h Assessment & Plan (05/22/2019 1:31 PM RESEARCH & INSIGHTS EXECUTIVE): S/p intubation. S/p precedex. - wean to Morphine 5mg q8h today - PRN PO ativan 2mg q4h - JOANN scores q4h Pneumonia due to infectious organism 05/05/2019 03/05/2021 Assessment & Plan (01/05/2021 3:07 PM CDT): Corey White is 15 year old F with a history of T21, developmental delay, AV canal defect s/p repair, adrenal insufficiency, previous trach dependence (s/p repair of tracheocutaneous fistula and multiple prior admissions for respiratory failure), and G-tube dependence who presented with fevers, diarrhea, and desaturations to the 80s at home. She was treated for presumed aspiration pneumonia in the PICU. Transferred to the floor on 12/31. Neuro: - Off precedex (d/c 12/30) off morphine (d/c'd 12/27) - Weaned to Risperidone q24 01/03, with last day of 01/05. Last dose today. - Depakote 250 mg TID for mood stabilization - tylenol PRN - Agitation PRN: Ativan 2mg q6h PRN - Continue PT/OT Resp: RA while awake today, 1LNC this morning while sleeping; continue to wean as tolerated, s/p HFNC - Extubated 12/23 - weaned CPT to BID 01/05, which is same as her home schedule. - Symbicort BID, albuterol q4 s/p Diamox 12/26 - Suction and supportive care as needed. CV: hx of AV canal (s/p repair) - Monitor blood pressures daily. FEN/ GI: - Diet: Bolus feeds 4x daily - see diet order - Home feeding regimen: Osmolite 1.0 2 cans + 240cc water @ 0800/1200/1600, and 1 can + 240 cc water at 2000 - Prevacid daily, KCl 20 mEq daily 12/20 - s/p Lasix 5mg IV daily 12/20-12/25 - Bowel regimen: None, monitor ongoing stool output ID: Pneumonia vs sepsis (has grown MRSA and Corynebacterium in the past) - 12/15 BioFire assay +Strep pyogenes 12/19 blood cx x3, UA, trach aspirate - NGTD 12/26 BCx (NGTD), UCx (UA clean) - s/p Cefepime 12/26-12/28, Unasyn (12/17-12/23), vanc (12/13-12/17), cefepime (12/15-12/16), cipro, Unasyn (12/10 - 12/13) - US chest 12/13: small, complex loculated pleural effusion in L lung base - ID following - If spikes fever, will obtain blood and sputum cultures, start abx. - Nystatin for diaper rash. Heme: - s/p Enoxaparin BID (12/15-01/01) - anti Xa level therapeutic Endo: history of secondary adrenal insufficiency - Physiologic steroids (12/16-12/18, 12/19-12/24) - s/p stress dose steroids 12/11-12/16 s/p insulin gtt 0.06 units/kg/hr - Confirmed with father patient is NOT on daily steroids at home, only stress dosing when ill. Derm: Patient with erythematous raised papules/patches c/w prior history of MRSA colonization and frequent picking. - Silvadene BID - Nystatin cream for katie diaper rash Ext: Cold L foot - likely vasospasm, s/p vascular surgery consult; no intervention indicated. - Bearhuggers to feet bilaterally. Ophtho: Irregular borders of pupils IV access: none. Dispo planning: - wean off oxygen while awake, and asleep preferably. - CPT BID per home regimen. - walking and sitting up. Assessment & Plan (01/04/2021 5:07 PM CDT): Corey White is 15 year old F with a history of T21, developmental delay, AV canal defect s/p repair, adrenal insufficiency, previous trach dependence (s/p repair of tracheocutaneous fistula and multiple prior admissions for respiratory failure), and G-tube dependence who presented with fevers, diarrhea, and desaturations to the 80s at home. She was treated for presumed aspiration pneumonia in the PICU. Transferred to the floor on 12/31. Neuro: - Off precedex (d/c 12/30) off morphine (d/c'd 12/27) - Weaned to Risperidone q24 01/03, with last day of 01/05 - Depakote 250 mg TID for mood stabilization - tylenol PRN - Agitation PRN: Ativan 2mg q6h PRN - Continue PT/OT Resp: RA while awake today, 1LNC during nap; continue to wean as tolerated, s/p HFNC - Extubated 12/23, s/p VDR, PC/SIMV - weaned CPT to TID 01/04. Continue to wean towards home schedule of BID. - Symbicort BID, albuterol q4 s/p Diamox 12/26 - Suction and supportive care as needed. CV: hx of AV canal (s/p repair) - Monitor blood pressures daily. FEN/ GI: - Diet: Bolus feeds 4x daily - see diet order - Home feeding regimen: Osmolite 1.0 2 cans + 240cc water @ 0800/1200/1600, and 1 can + 240 cc water at 2000 - Prevacid daily, KCl 20 mEq daily 12/20 - s/p Lasix 5mg IV daily 12/20-12/25 - Bowel regimen: None, monitor ongoing stool output ID: Pneumonia vs sepsis (has grown MRSA and Corynebacterium in the past) - 12/15 BioFire assay +Strep pyogenes 12/19 blood cx x3, UA, trach aspirate - NGTD 12/26 BCx (NGTD), UCx (UA clean) - s/p Cefepime 12/26-12/28, Unasyn (12/17-12/23), vanc (12/13-12/17), cefepime (12/15-12/16), cipro, Unasyn (12/10 - 12/13) - US chest 12/13: small, complex loculated pleural effusion in L lung base - ID following - If spikes fever, will obtain blood and sputum cultures, start abx. Heme: - s/p Enoxaparin BID (12/15-01/01) - anti Xa level therapeutic Endo: history of secondary adrenal insufficiency - Physiologic steroids (12/16-12/18, 12/19-12/24) - s/p stress dose steroids 12/11-12/16 s/p insulin gtt 0.06 units/kg/hr - Confirmed with father patient is NOT on daily steroids at home, only stress dosing when ill. Derm: Patient with erythematous raised papules/patches c/w prior history of MRSA colonization and frequent picking. - Silvadene BID - Nystatin cream for katie diaper rash Ext: Cold L foot - likely vasospasm, s/p vascular surgery consult; no intervention indicated. - Bearhuggers to feet bilaterally. Ophtho: Irregular borders of pupils IV access: none. Dispo planning: - wean off oxygen while awake, and asleep preferably. - CPT BID per home regimen. - walking and sitting up. Assessment & Plan (01/03/2021 12:11 PM CDT): Corey White is 15 year old F with a history of T21, developmental delay, AV canal defect s/p repair, adrenal insufficiency, previous trach dependence (s/p repair of tracheocutaneous fistula and multiple prior admissions for respiratory failure), and G-tube dependence who presented with fevers, diarrhea, and desaturations to the 80s at home. She was treated for presumed aspiration pneumonia in the PICU. Transferred to the floor on 12/31. Neuro: - Off precedex (d/c 12/30) off morphine (d/c'd 12/27) - Weaned to Risperidone q24 01/03, with last day of 01/05 - Depakote 250 mg TID for mood stabilization - tylenol PRN - Agitation PRN: Ativan 2mg q6h PRN - Continue PT/OT Resp: 1LNC wean as tolerated, s/p HFNC - Extubated 12/23, s/p VDR, PC/SIMV - Continue CPT q6 today while requiring oxygen. Continue to wean towards home schedule of BID. - Symbicort BID, albuterol q4 s/p Diamox 12/26 - Suction and supportive care as needed. CV: hx of AV canal (s/p repair) - Monitor blood pressures daily. FEN/ GI: - Diet: Bolus feeds 4x daily - see diet order - Home feeding regimen: Osmolite 1.0 2 cans + 240cc water @ 0800/1200/1600, and 1 can + 240 cc water at 2000 - Prevacid daily, KCl 20 mEq daily 12/20 - s/p Lasix 5mg IV daily 12/20-12/25 - Bowel regimen: None, monitor ongoing stool output ID: Pneumonia vs sepsis (has grown MRSA and Corynebacterium in the past) - 12/15 BioFire assay +Strep pyogenes 12/19 blood cx x3, UA, trach aspirate - NGTD 12/26 BCx (NGTD), UCx (UA clean) - s/p Cefepime 12/26-12/28, Unasyn (12/17-12/23), vanc (12/13-12/17), cefepime (12/15-12/16), cipro, Unasyn (12/10 - 12/13) - US chest 12/13: small, complex loculated pleural effusion in L lung base - ID following - If spikes fever, will obtain blood and sputum cultures, start abx. Heme: - s/p Enoxaparin BID (12/15-01/01) - anti Xa level therapeutic Endo: history of secondary adrenal insufficiency - Physiologic steroids (12/16-12/18, 12/19-12/24) - s/p stress dose steroids 12/11-12/16 s/p insulin gtt 0.06 units/kg/hr - Confirmed with father patient is NOT on daily steroids at home, only stress dosing when ill. Derm: Patient with erythematous raised papules/patches c/w prior history of MRSA colonization and frequent picking. - Silvadene BID - Nystatin cream for katie diaper rash Ext: Cold L foot - likely vasospasm, s/p vascular surgery consult; no intervention indicated. - Bearhuggers to feet bilaterally. Ophtho: Irregular borders of pupils IV access: note. Assessment & Plan (01/02/2021 7:31 PM CDT): Corey White is 15 year old F with a history of T21, developmental delay, AV canal defect s/p repair, adrenal insufficiency, previous trach dependence (s/p repair of tracheocutaneous fistula and multiple prior admissions for respiratory failure), and G-tube dependence who presented with fevers, diarrhea, and desaturations to the 80s at home. She was treated for presumed aspiration pneumonia in the PICU. Transferred to the floor on 12/31. Neuro: - Off precedex (d/c 12/30) off morphine (d/c'd 12/27) - Risperidone q12 12/31 - Wean risperidone tomorrow to q 24 (q24-->3days-->stop) - Depakote 250 mg TID for mood stabilization - tylenol PRN - Agitation PRN: Ativan 2mg q6h PRN - PT/OT Resp: 1LNC, s/p HFNC - Extubated 12/23, s/p VDR, PC/SIMV - CPT weaned to q6 today. Continue to wean towards home schedule of BID. - Symbicort BID, albuterol q4 s/p Diamox 12/26 - Suction and supportive care as needed. CV: hx of AV canal (s/p repair) - Monitor blood pressures daily. FEN/ GI: - Diet: Bolus feeds 4x daily - see diet order - Home feeding regimen: Osmolite 1.0 2 cans + 240cc water @ 0800/1200/1600, and 1 can + 240 cc water at 2000 - Prevacid daily, KCl 20 mEq daily 12/20 - s/p Lasix 5mg IV daily 12/20-12/25 - Bowel regimen: None, monitor ongoing stool output ID: Pneumonia vs sepsis (has grown MRSA and Corynebacterium in the past) - 12/15 BioFire assay +Strep pyogenes 12/19 blood cx x3, UA, trach aspirate - NGTD 12/26 BCx (NGTD), UCx (UA clean) - s/p Cefepime 12/26-12/28, Unasyn (12/17-12/23), vanc (12/13-12/17), cefepime (12/15-12/16), cipro, Unasyn (12/10 - 12/13) - US chest 12/13: small, complex loculated pleural effusion in L lung base - ID following - If spikes fever, will obtain blood and sputum cultures, start abx. Heme: - s/p Enoxaparin BID (12/15-01/01) - anti Xa level therapeutic Endo: history of secondary adrenal insufficiency - Physiologic steroids (12/16-12/18, 12/19-12/24) - s/p stress dose steroids 12/11-12/16 s/p insulin gtt 0.06 units/kg/hr - Confirmed with father patient is NOT on daily steroids at home, only stress dosing when ill. Derm: Patient with erythematous raised papules/patches c/w prior history of MRSA colonization and frequent picking. - Silvadene BID - Nystatin cream for katie diaper rash Ext: Cold L foot - likely vasospasm, s/p vascular surgery consult; no intervention indicated. - Bearhuggers to feet bilaterally. Ophtho: Irregular borders of pupils Will dc IV after RFP today. Assessment & Plan (01/01/2021 7:56 PM CDT): Corey White is 15 year old F with a history of T21, developmental delay, AV canal defect s/p repair, adrenal insufficiency, previous trach dependence (s/p repair of tracheocutaneous fistula and multiple prior admissions for respiratory failure), and G-tube dependence who presented with fevers, diarrhea, and desaturations to the 80s at home. She was treated for presumed aspiration pneumonia in the PICU. Transferred to the floor on 12/31. Neuro: - Off precedex (d/c 12/30) off morphine (d/c'd 12/27) - Risperidone q12 dec'd 12/31 - Wean risperidone q3 days (q24-->3days-->stop) - Depakote 250 mg TID for mood stabilization - tylenol PRN - Agitation PRN: Ativan 2mg q6h PRN - PT/OT Resp: 1LNC, s/p HFNC - Extubated 12/23, s/p VDR, PC/SIMV - CPT q4h- - wean as tolerated. Home schedule is BID. - Symbicort BID, albuterol q4 s/p Diamox 12/26 - Suction and supportive care as needed. CV: hx of AV canal (s/p repair) - Monitor blood pressures daily. FEN/ GI: - Diet: Bolus feeds 4x daily - see diet order - Home feeding regimen: Osmolite 1.0 2 cans + 240cc water @ 0800/1200/1600, and 1 can + 240 cc water at 2000 - Prevacid daily, KCl 20 mEq daily 12/20 - s/p Lasix 5mg IV daily 12/20-12/25 - Bowel regimen: None, monitor ongoing stool output ID: Pneumonia vs sepsis (has grown MRSA and Corynebacterium in the past) - 12/15 [employer] assay +Strep pyogenes 12/19 blood cx x3, UA, trach aspirate - NGTD 12/26 BCx (NGTD), UCx (UA clean) - s/p Cefepime 12/26-12/28, Unasyn (12/17-12/23), vanc (12/13-12/17), cefepime (12/15-12/16), cipro, Unasyn (12/10 - 12/13) - US chest 12/13: small, complex loculated pleural effusion in L lung base - ID following - If spikes fever, will obtain blood and sputum cultures, start abx. Heme: - D/C Enoxaparin BID (12/15-01/01) - anti Xa level therapeutic Endo: history of secondary adrenal insufficiency - Physiologic steroids (12/16-12/18, 12/19-12/24) - s/p stress dose steroids 12/11-12/16 s/p insulin gtt 0.06 units/kg/hr - Confirmed with father patient is NOT on daily steroids at home, only stress dosing when ill. Derm: Patient with erythematous raised papules/patches c/w prior history of MRSA colonization and frequent picking. - Silvadene BID Ext: Cold L foot - likely vasospasm, s/p vascular surgery consult; no intervention indicated. - Bearhuggers to feet bilaterally. Ophtho: Irregular borders of pupils Assessment & Plan (05/25/2019 11:59 AM RESEARCH & INSIGHTS EXECUTIVE): LLL pneumonia. s/p Vanc x5 days (05/12-05/17), Levaquin (05/02-05/09, 05/12-05/15), Vanc (05/02-05/03), Flagyl (05/02). - wean O2 as tolerated - continue to monitor respiratory status Assessment & Plan (05/24/2019 10:23 AM RESEARCH & INSIGHTS EXECUTIVE): LLL pneumonia. s/p Vanc x5 days (05/12-05/17), Levaquin (05/02-05/09, 05/12-05/15), Vanc (05/02-05/03), Flagyl (05/02). - wean O2 as tolerated - continue to monitor respiratory status Assessment & Plan (05/23/2019 11:50 AM RESEARCH & INSIGHTS EXECUTIVE): LLL pneumonia. s/p Vanc x5 days (05/12-05/17), Levaquin (05/02-05/09, 05/12-05/15), Vanc (05/02-05/03), Flagyl (05/02). - wean O2 as tolerated - continue to monitor respiratory status Assessment & Plan (05/22/2019 1:22 PM RESEARCH & INSIGHTS EXECUTIVE): LLL pneumonia. s/p Vanc x5 days (05/12-05/17), Levaquin (05/02-05/09, 05/12-05/15), Vanc (05/02-05/03), Flagyl (05/02). - wean O2 as tolerated - continue to monitor respiratory status Rhinovirus infection 05/05/2019 021 Assessment & Plan (06/12/2020 10:23 AM RESEARCH & INSIGHTS EXECUTIVE): Corey Gillespie is a 14yoF w PMH of trisomy 21, AV canal defect s/p repair, tracheocutaneous fistula who presented in respiratory failure due to rhino/enterovirus+. Patient is stable on the floor. Saturations are appropriate on 0.5-1L NC. Discussed with Jeanette (father) need for small amount of oxygen at home. Jeanette has necessary supplies at home. Disposition is home this evening pending transportation. - NC, wean O2 as tolerated - Continuous pulse oximetry - vest q6h, albuterol PRN - Echo prior to discharge to r/o pulmonary HTN from possible chronic LADONNA Assessment & Plan (06/11/2020 7:01 AM RESEARCH & INSIGHTS EXECUTIVE): Corey Gillespie is a 14yoF w PMH of trisomy 21, AV canal defect s/p repair, tracheocutaneous fistula who presented in respiratory failure due to rhino/enterovirus+. Patient is stable on the floor. Saturations are appropriate on 0.5-1L NC. Will continue to wean supplemental oxygen as able. Tolerated weaning during day yesterday but continued to have desaturation events while sleeping. - NC, wean O2 as tolerated - Continuous pulse oximetry - vest q6h, albuterol PRN Assessment & Plan (06/10/2020 6:57 AM RESEARCH & INSIGHTS EXECUTIVE): Corey Gillespie is a 14yoF w PMH of trisomy 21, AV canal defect s/p repair, tracheocutaneous fistula who presented in respiratory failure due to rhino/enterovirus+. Patient is stable on the floor. Saturations are appropriate on 0.5-1L NC. Will continue to wean supplemental oxygen as able. Tolerated weaning during day yesterday but continued to have desaturation events while sleeping. - NC, wean O2 as tolerated - Continuous pulse oximetry - vest q6h, albuterol PRN Assessment & Plan (06/09/2020 7:51 AM RESEARCH & INSIGHTS EXECUTIVE): Corey Gillespie is a 14yoF w PMH of trisomy 21, AV canal defect s/p repair, tracheocutaneous fistula who presented in respiratory failure due to rhino/enterovirus+. Patient is stable on the floor. Saturations are appropriate on 0.5-1L NC. Will continue to wean supplemental oxygen as able. - NC, wean O2 as tolerated - Continuous pulse oximetry - vest q6h, albuterol PRN Assessment & Plan (06/08/2020 10:57 AM RESEARCH & INSIGHTS EXECUTIVE): Corey Gillespie is a 14yoF w PMH of trisomy 21, AV canal defect s/p repair, tracheocutaneous fistula who presented in respiratory failure due to rhino/enterovirus+. Patient has since completed a course of antibiotics, transitioned from stress to physiologic steroid dosing and was extubated to HFNC and then transitioned to NC. Patient is stable on the floor. Saturations are appropriate on 1.5-2L NC. Will continue to wean supplemental oxygen as able. - NC, wean O2 as tolerated - Continuous pulse oximetry - vest q6h, albuterol PRN Assessment & Plan (07/20/2019 10:54 AM CDT): See assessment and plan for acute on chronic respiratory failure. Assessment & Plan (05/25/2019 11:59 AM RESEARCH & INSIGHTS EXECUTIVE): Multiplex (/) positive for rhino/enterovirus. Rhino/enterovirus URI. - CPT q4h - wean O2 as tolerated Assessment & Plan (05/24/2019 10:23 AM RESEARCH & INSIGHTS EXECUTIVE): Multiplex (/) positive for rhino/enterovirus. Rhino/enterovirus URI. - CPT q4h - wean O2 as tolerated Assessment & Plan (05/23/2019 11:50 AM RESEARCH & INSIGHTS EXECUTIVE): Multiplex (/) positive for rhino/enterovirus. Rhino/enterovirus URI. - CPT q4h - wean O2 as tolerated Assessment & Plan (05/22/2019 1:24 PM RESEARCH & INSIGHTS EXECUTIVE): Multiplex (/) positive for rhino/enterovirus. Rhino/enterovirus URI. - CPT q4h - wean O2 as tolerated Acute respiratory failure wi th hypoxia due to MRSA tracheitis 05/02/2019 01/25/2020 Assessment & Plan (01/17/2020 10:56 AM CDT): Mistiarmand Becerril Javed is a 14 y/o with a PMH of trisomy 21, AV canal defect s/p repair, LADONNA, tracheomalacia, adrenal insufficiency admited on 01/11 for acute on chronic hypoxic respiratory failure following recent discharge for complications from COVID-19, possibly secondary to aspiration at home. Previous tracheostomy site/stoma and sputum with MRSA growth, started on bactrim and augmentin. Stress dose hydrocortisone initiated on 01/12. Now improving on antibiotics and off of supplemental oxygen. - Augmentin BID Bactrim BID (projected completion date 01/18) - Hydrocortisone 6mg TID, wean as below for after discharge - Stress dose teaching with family prior to discharge - CPT BID CA BID (emulate home regimen) - Albuterol prn HCTZ wean: 01/16 6 mg po tid 01/19 3 mg po tid 01/22 2 mg po tid 01/25 1 mg po tid 01/28 d/c hydrocortisone Assessment & Plan (01/16/2020 1:47 PM CDT): Corey Gillespie is a 14 y/o with a PMH of trisomy 21, AV canal defect s/p repair, LADONNA, tracheomalacia, adrenal insufficiency admited on 01/11 for acute on chronic hypoxic respiratory failure following recent discharge for complications from COVID-19 Patient was discharged home on 01/10 on RA following her admission. However, was found to have increased secretions and oxygen requirements the morning of 01/11 resulting in presentation to [facility] ER and subsequent PICU admission on 15 L HFNC and FiO2 requirement at 70%. Has since been weaned to room air. Previous tracheostomy site/stoma and sputum with MRSA growth. Stress dose hydrocortisone initiated on 01/12. - Augmentin BID Bactrim BID (projected completion date 01/18)--appreciate ID recs - Hydrocortisone 5 mg/m2 q8h endo c/s prior to discharge to teaching and wean plan - Stress dose teaching with family prior to discharge - CPT QID CA QID Assessment & Plan (01/15/2020 2:25 PM CDT): Corey Gillespie is a 14 y/o with a PMH of trisomy 21, AV canal defect s/p repair, LADONNA, tracheomalacia, adrenal insufficiency admited on 01/11 for acute on chronic hypoxic respiratory failure following recent discharge for complications from COVID-19 Patient was discharged home on 01/10 on RA following her admission. However, was found to have increased secretions and oxygen requirements the morning of 10/1 resulting in presentation to [facility] ER and subsequent PICU admission on 15 L HFNC and FiO2 requirement at 70%. Has since been weaned to 2L via NC. Previous tracheostomy site/stoma and sputum with MRSA growth. Currently on day 3 of antibiotics Stress dose hydrocortisone initiated on 01/12 with physiologic change prior to transfer to floor. - Augmentin BID Bactrim BID (projected completion date 01/18)--appreciate ID recs - Hydrocortisone 5 mg/m2 q8h endo c/s prior to discharge to teaching and wean plan - 2L NC, wean as tolerated - CPT QID CA QID Assessment & Plan (07/20/2019 11:15 AM CDT): Corey is a 13 year old with history of Trisomy 21, AV canal s/p repair at 6 months old with no residual cardiac dysfunction, chronic lung disease (hx of ecmo and intubation, previously trach dependent), tracheomalacia, adrenal insufficiency, and LADONNA (does not tolerate any CPAP) who presents with 1 day of fevers (Tmax 101F), shortness of breath, and desat to mid-80s at home. In ED VBG 7.41/50, stable from previous. CBC w/o leukocytosis. CXR with signs of known CLD with possible superimposed viral process. MP +rhino/entero. COVID testing negative. Required max 4L. Since admission she has had clinical improvement and is currently on 0.5L w/o desaturation episodes. She continues to be afebrile with stable vitals. - 0.5L NC, wean as tolerated - symbicort 2 puffs BID - vest QID, albuterol BID (home regimen) - supportive care for viral URI - tylenol prn Assessment & Plan (06/17/2019 1:41 PM RESEARCH & INSIGHTS EXECUTIVE): Corey presents with increased WOB, increased secretions, and increased oxygen requirement. Recently admitted Apr 2019 for resp failure with pna and RSV. She was intubated during that admission and was discharged home on 05/26/2019 on 1-1.5L oxygen at night. - intermittently needs 1L overnight - home Albuterol, Symbicort BID - Vest therapy QID [ ] holding on trach. Want to give more time and increase flat time - s/p Levaquin for presumed PNA - Call ENT if respiratory concerns Assessment & Plan (05/25/2019 11:56 AM RESEARCH & INSIGHTS EXECUTIVE): S/p intubation in PICU. Difficult extubation in PICU. s/p Decadron (05/12-05/13); s/p rac epi x2 w/ failed extubation. Extubated 2/3 to HFNC. - 2L NC, wean as tolerated - CPT q4h, Albuterol 2.5 mg q4h - ENT performed scope on 2/3 which showed left arytenoid prolapse; plan to re- scope outpt in 3-4 wks Assessment & Plan (05/24/2019 10:21 AM RESEARCH & INSIGHTS EXECUTIVE): S/p intubation in PICU. Difficult extubation in PICU. s/p Decadron (05/12-05/13); s/p rac epi x2 w/ failed extubation. Extubated 2/3 to HFNC. - 1L NC, wean as tolerated - CPT q4h, Albuterol 2.5 mg q4h - ENT performed scope on 2/3 which showed left arytenoid prolapse; plan to re- scope outpt in 3-4 wks Assessment & Plan (05/23/2019 5:52 PM RESEARCH & INSIGHTS EXECUTIVE): S/p intubation in PICU. Difficult extubation in PICU. s/p Decadron (05/12-05/13); s/p rac epi x2 w/ failed extubation. Extubated 2/3 to HFNC. - 1.5L NC, wean as tolerated - CPT q4h, Albuterol 2.5 mg q4h - ENT- will re-scope in 3-4 wks outpt Assessment & Plan (05/22/2019 1:37 PM RESEARCH & INSIGHTS EXECUTIVE): S/p intubation in PICU. Difficult extubation in PICU. s/p Decadron (05/12-05/13); s/p rac epi x2 w/ failed extubation. Extubated 2/3 to HFNC. Currently on 2L NC. - 2L NC, wean as tolerated - CPT q4h, Albuterol 2.5 mg q4h - ENT- will re-scope in 3-4 wks Mild intermittent asthma 02/11/2017 08/12/2022 Dysphagia 08/16/2015 03/05/2020 Papilledema 02/10/2011 03/05/2020 Pulmonary edema 03/24/2008 03/05/2020 Encounters Date Type Department Care Team Description 03/15/2025 Telephone [facility] Medicine Pediatric Allergy and Pulmonology [address] [place] [address] [place] [address] Marcelina Peterson, HARIS 02/10/2025 Telephone [facility] Pediatric Allergy and Pulmonology [facility] [address] [place] [address] [place] [address] Mary Parnell, HARIS 01/22/2025 Telephone [facility] Pediatric Allergy and Pulmonology [facility] [address] [place] [address] [place] [address] Cristian Carlisle MD 01/22/2025 Orders Only [facility] Medicine Pediatric Allergy and Pulmonology [facility] [address] [place] [address] [place] [address] Cristian Carlisle MD from Last 3 Months Immunizations Immunization Administration Dates Next Due DTaP 01/08/2007,02/05/2005,2004 DTaP / Hep B / IPV 05/08/2006 DTaP / IPV 10/30/2009 Hep A, Ped Unspecified 01/08/2007,05/08/2006 Hep B, Adolescent or Pediatric 02/05/2005,2004,2004 HiB 05/08/2006,02/05/2005,2004 IPV 02/05/2005,2004 Influenza, Quadrivalent, Spl it, Preservative Free, Intramuscular 02/02/2019,04/01/2018,01/12/2017,02/01 Influenza, Trivalent, Preser vative Free, Intramuscular 05/10/2013,03/22/2008 MMRV 10/30/2009,05/08/2006 Meningococcal MCV4P (Menactra) 07/31/2016 Pneumococcal Conjugate 7-Valent 05/08/2006,02/05,2004 Pneumococcal Conjugate PCV 13 10/30/2009 Pneumococcal Polysaccharide PPV23 11/18/2016 Tdap 07/31/2016 Surgical History Surgery Date Site/Laterality Comments CT CHEST TUBE INSERTION LEFT 06/12/2016 N/A ATRIOVENTRICULAR CANAL REPAIR, COMPLETE 01/16/2005 Repair AV canal and PDA ligation TRACHEOSTOMY 08/21/2006 GASTROSTOMY TUBE PLACEMENT 10/23/2005 TONSILLECTOMY/ADENOIDECTOMY 08/13/2005 laryngoscopy, bronchoscopy, supraglottoplasty [place] FUNDOPLICATION 10/24/2015 @time of g button BRONCHOSCOPY 06/19/2010 DENTAL SURGERY 08/29/2013 OTHER SURGICAL HISTORY 10/31/2015 Decanulation EXTRACORPOREAL CIRCULATION 05/05/16-05/20/16 veno-arterial ECMO CENTRAL LINE REPOSITION 05/30/2020 N/A Medical History Medical History Date Comments Down syndrome AV canal Sleep apnea Aspiration into respiratory tract Feeding by G-tube (HCC) Developmental delay Chronic lung disease Left lower lobe pneumonia 12/06/2019 Pneumonia due to infectious organism 05/05/2019 Tracheitis 05/22/2019 Aspiration pneumonia (HCC) 01/18/2020 Acute respiratory failure wi th hypoxia and hypercapnia (HCC) 12/06/2019 Acute respiratory failure wi th hypoxia due to MRSA tracheitis 05/02/2019 Acute respiratory distress s yndrome (ARDS) due to COVID-19 virus (HCC) 12/06/2019 Rhinovirus infection 05/05/2019 Septic shock (HCC) 12/06/2019 Papilledema 02/10/2011 Pulmonary edema 03/24/2008 Dysphagia 08/16/2015 Covid-19 02/2020 Nasal congestion 08/22/2020 Autism suspected but no t confirmed, ACP 08/22/20 Pneumonia due to infectious organism 05/05/2019 Acute respiratory failure wi th hypoxia and hypercapnia (HCC) 12/06/2019 Acute respiratory failure wi th hypoxia (HCC) 12/10/2020 Rhinovirus infection 05/05/2019 Covid-19 12/06/2019 Acute hypoxemic respiratory failure (HCC) 12/10/2020 Family History Medical History Relation Name Comments Asthma Brother 1 No Known Problems Brother 2 No Known Problems Father Obesity Maternal Grandfather No Known Problems Maternal Grandmother Brain Aneurysm Mother overdose Mother cause of No Known Problems Paternal Grandfather No Known Problems Paternal Grandmother Relation Name Status Comments Brother 1 Alive Brother 2 Alive Father Alive Half-Brother Alive Maternal Grandfather Alive Maternal Grandmother Alive Mother Paternal Grandfather Alive Paternal Grandmother Alive Social History Tobacco Use Types Packs/Day Years Used Date Smoking Tobacco: Never Passive Smoke Exposure: Current Smokeless Tobacco: Never Alcohol Use Standard Drinks/Week Comments No 0 (1 standard drink = 0.6 oz pur e alcohol) Overall Financial Resource Strain (CARDIA) Answe r Date Recorded How hard is it for you to pa y for the very basics like food, housing, medical care, and heating? Not very hard 06/08/2020 Hunger Vital Sign Answer Date Recorded Within the past 12 months, y ou worried that your food would run out before you got the money to buy more. Never true 06/08/19 21 Within the past 12 months, t he food you bought just didn't last and you didn't have money to get more. Never true 06/08/2020 PRAPARE - Transportation Answer Date Re corded In the past 12 months, has l ack of transportation kept you from medical appointments or from getting medications? No 05/15 In the past 12 months, has l ack of transportation kept you from meetings, work, or from getting things needed for daily living? No 06/08/2020 Personal Safety Answer Date Recorded Have you ever been in or are you currently in a harmful physical or emotional relationship or is someone making you feel afraid or unsafe? Denies 09/07/2024 Comments No Sex and Gender Information Value Date Recorded Sex Assigned at Not on file Legal Sex Female 6:37 AM RESEARCH & INSIGHTS EXECUTIVE Gender Identity Not on file Sexual Orientation Not on file History Length Weight Head Circum Date/Time Gestation Age D/C Weight APGARs Delivery Method Feeding Method 19.69 (50 cm) 6 lb 3.7 oz (2.825 kg) 12.8 (32.5 cm) 2005 40 wks 1min: 2 5m in : 7 , Unspecified Labor Duration Days In Hospital Hospital Name Hospital Location [address] [place] [address] Comments Transferred at to [facility] NICU, diagnosed with Trixomy 21, balanced AV canal, larygomalacia, thrombocytopenia. Last Filed Vital Signs Vital Sign Reading Time Taken Comments Blood Pressure 110/68 12/06/2024 9:18 AM CDT Pulse 73 12/06/2024 9:18 AM CDT Temperature 36.1 C (97 F) 09/07/2024 4:18 PM CDT Respiratory Rate 20 09/07/2024 4:18 PM CDT Oxygen Saturation 96% 12/06/2024 9:18 AM CDT Inhaled Oxygen Concentration - - Weight 78.4 kg (172 lb 13.5 oz) 12/06/2024 9:18 AM CDT Height 153.5 cm (5' 0.43) 12/06/2024 9:18 AM CD T Body Mass Index 33.27 12/06/2024 9:18 AM CDT Plan of Treatment Health Maintenance Due Date Last Done Comments Depression Screening 2004 Karyotyping Documentation Transfer: If the patient has no karyotyping documentation, karyotyping results should be obtained pre- or post-natally. 2004 Echocardiogram 2004 Sleep Study 10/02/2007 HPV Vaccines (1 - 3-dose series) 10/02/2019 Meningococcal B Vaccine (1 of 2 - Standard) 2020 Regular Well Visit/Exam 18-64 2022 Ferritin and CRP or Iron and TIBC 06/10/2023 06/10/2022, 06/10/2022, 06/10/2022, Additional history exists TSH Level 06/10/2023 06/10/2022, 09/0 10/2019, 05/25/2019, Additional history exists Influenza Vaccine (#1) 2024 9, 04/01/2018, 01/12/2017, Additional history exists CBC Level 08/11/2025 08/11/2024, 03/0 09/2022, 06/10/2022, Additional history exists DTaP/Tdap/Td Vaccine (7 - Td or Tdap) 07/31/2026 07/31/2016, 10/30/2009, 01/08/2007, Additional history exists Pneumococcal vaccine <65 (2 of 2 - PCV20 or PCV21) 2054 11/18/2016, 10/30/2009, 05/08/2006, Additional history exists Hepatitis B Screening Completed 05/08/2006 , 02/05/2005, 2004, Additional history exists Varicella Vaccines Completed 10/30/2009, 05/08/2006 Meningococcal Vaccine Aged Out 07/31/2016 No javier aeln eligible based on patient's age to complete this topic Hepatitis C Screening Completed 05/04/2019 Procedures Procedure Name Priority Date/Time Associated Diagnosis Comments CBC WITH AUTO DIFFERENTIAL Routine 06/16/2022 12:10 PM RESEARCH & INSIGHTS EXECUTIVE Down syndrome Neutropenia, unspecified type FERRITIN Routine 06/10/2022 4:10 PM RESEARCH & INSIGHTS EXECUTIVE Down syndrome At risk for anemia TSH Routine 06/10/2022 4:10 PM RESEARCH & INSIGHTS EXECUTIVE Down syndrome At risk for hypothyroidism HEPATITIS PANEL, ACUTE STAT 05/04/2019 12:27 PM RESEARCH & INSIGHTS EXECUTIVE from Last 3 Months or Most Recently Relevant to Health Maintenance Results * (ABNORMAL) CBC with auto differential (06/16/2022 12:10 PM RESEARCH & INSIGHTS EXECUTIVE) WBC 3.3(L) 3.8 - 9.9 K/cumm [facility] Comment:Testing performed by : [facility], [address], [place] [address] Hgb 14.7 11.9 - 15.5 g/dL [facility] Comment:Testing performed by : [facility], [address], [place] [address] Hct 42.6 35.6 - 45.5 % [facility] Comment:Testing performed by : [facility], [address], [place] [address] Plt 110(L) 150 - 400 K/cumm [facility] Comment:Testing performed by : [facility], [address], [place] [address] MPV 11.2 9.1 - 12.3 fL [facility] Comment:Testing performed by : [facility], [address], [place] [address] RBC 4.01 3.90 - 5.20 M/cumm [facility] Comment:Testing performed by : [facility], [address], [place] [address] MCV 106.2(H) 81.3 - 96.4 fL [facility] Comment:Testing performed by : [facility], [address], [place] [address] MCH 36.7(H) 27.1 - 33.3 pg [facility] Comment:Testing performed by : [facility], [address], [place] [address] MCHC 34.5 32.3 - 35.7 g/dL [facility] Comment:Testing performed by : [facility], [address], [place] [address] RDW CV 12.7 11.1 - 14.9 % [facility] Comment:Testing performed by : [facility], [address], [place] [address] RDW SD 50.4(H) 35.7 - 48.1 fL [facility] Comment:Testing performed by : [facility], [address], [place] [address] NRBC abs 0.00 0.00 - 0.01 K/cumm [facility] Comment:Testing performed by : [facility], [address], [place] [address] Blood 06/16/2022 12:1 0 PM RESEARCH & INSIGHTS EXECUTIVE 06/16/2022 12:13 PM RESEARCH & INSIGHTS EXECUTIVE us Pauline Levin MD LAB BLOOD ORDERABLES Final Result [facility] Department [place] [address] * TSH (06/10/2022 4:10 PM RESEARCH & INSIGHTS EXECUTIVE) Thyroid Stimulating Hormone 2.13 0.30 - 4.20 mcIUnit/mL [facility] Blood 06/10/2022 4:10 PM RESEARCH & INSIGHTS EXECUTIVE 06/10/2022 6:50 PM RESEARCH & INSIGHTS EXECUTIVE Pauline Levin MD LAB BLOOD ORDERABLES Final Result Performing Organization Address City/[facility]/ZIP Co de Phone Number [facility] [place] [address] * Ferritin (06/10/2022 4:10 PM RESEARCH & INSIGHTS EXECUTIVE) Ferritin 72 15 - 150 ng/mL [facility] Blood 06/10/2022 4:10 PM RESEARCH & INSIGHTS EXECUTIVE 06/10/2022 6:50 PM RESEARCH & INSIGHTS EXECUTIVE Pauline Levin MD LAB BLOOD ORDERABLES Final Result Performing Organization Address [facility] [[email or web address]] de Phone Number [facility] [facility] [place] [address] * Hepatitis panel, acute (05/04/2019 12:27 PM RESEARCH & INSIGHTS EXECUTIVE) Pathologist [facility] Hep A IgM Nonreactive Nonreactive [facility] Comment: Interpretive Data If test is reported as GRAYZONE, new sample should be drawn in two weeks for testing. Current interpretive data was last revised on 2016. Testing performed by: [facility], [address] [place] [address]., [id number] Hep B core IgM Nonreactive Nonreactive [facility] Comment: Interpretive Data If test is reported as GRAYZONE, new sample should be drawn for testing. Current interpretive data was last revised on 2016. Testing performed by: [facility], [address] [place]., [address] Hep C Ab Nonreactive Nonreactive [facility] Comment: Interpretive Data Positive results should be confirmed by a molecular method. If positive, a second separately collected sample should be submitted for Hepatitis C Virus (HCV) RNA Detection and Quantitation by Real-Time Reverse Log Haul Operator-PCR (RT-PCR). Current interpretive data was last revised on 2016. Testing performed by: [facility], [address] [place] [address]., [id number] HepBsAg Nonreactive Nonreactive [facility] Comment:Testing performed by : [facility], [address] [facility], [place]., [address] Blood specimen (specimen) 05/04/2019 12:27 PM RESEARCH & INSIGHTS EXECUTIVE 05/04/2019 1:54 PM RESEARCH & INSIGHTS EXECUTIVE us Jessy Fuentes MD PhD LAB MICROBIOLOGY - GENERAL ORDERABLES Edited Result - Final [facility] Department [place] [address] from Last 3 Months or Most Recently Relevant to Health Maintenance Insurance IDPA MEDICARE [facility] Address: [address] [address] [place] [address] [facility] MEDICAID IDPA IDPA IDPA MANAGED MEDICAID GENERIC RISK [place] Advance Directives For more information, please contact: [phone] * Full Code (Latest Code Status on File) Date Activated Date Inactivated Comments 03/31/2021 8:33 PM 04/03/2021 9:34 PM * Full Code Date Activated Date Inactivated Comments 12/10/2020 9:03 PM 01/06/2021 4:46 PM * Full Code Date Activated Date Inactivated Comments 05/29/2020 10:59 PM 06/12/2020 6:32 PM * Full Code Date Activated Date Inactivated Comments 01/12/2020 1:23 PM 01/18/2020 9:48 PM * Full Code Date Activated Date Inactivated Comments 12/05/2019 11:19 PM 01/11/2020 7:47 PM Care Teams Licensed Direct Entry Midwife Relationship Specialty Start Date End Date Pauline Gomes MD [address] [place] [address] [place] [id number] PCP - General Obstetrics and Gynecology 10/08/23 Kit Zapien MD 1 [facility] [address] [place] [address] Referring Physician Pediatric Critical Care Medicine 04/16/18 Mera Benson, OT Occupational Therapist Occupational Therapy 05/31/20 Paty Winn MD Referring Physician Pediatrics 05/02/22 Diana Mccullough, OT Occupational Therapist Occupational Therapy 05/13/23
--- OUTSIDE RECORDS SUMMARY | 2025-03-28 16:01 | XMS_ITS | Clinical Summary ---
Author Organization [facility] Address [address] [place] [address] Phone Care Team Providers Care Diesel Pile Hammer Operator Name Role Phone Eamon Ballard MD Primary Care Provider Allergies Active Allergy Reactions Criticality Noted Date Comments Cephalosporins Hives Medium 05/02/2019 Medications omeprazole (PriLOSEC) 2 mg/mL compounded suspension Take by mouth Active albuterol (PROVENTIL, VENTOLIN) (2.5 MG/3ML) 0.083% Nebulizer Soln Give a treatment before each vest therapy 4-6 times per day during times of illness. 3 Active albuterol 108 (90 Base) MCG/ACT Aerosol Solution May give 2 puffs with spacer or 1 nebulizer treatment every 4-6 hours during times of illness. 3 Active budesonide-form oterol fumarate (Symbicort) 80-4.5 MCG/ACT Aerosol GIVE 2 PUFFS WITH SPACER EVERY MORNING AND EVENING 3 Active Multiple Vitamin (MULTIVITAMIN PO) Take by mouth. Activ e famotidine (PEPCID) 40 MG/5ML Recon Suspension 2 times daily. Acti ve polyethylene glycol (GLYCOLAX) 17 GM/SCOOP Powder 17 g by Enteral route daily as needed. Active Active Problems Problem Noted Date Diagnosed Date Lymphopenia 11/25/2023 Thrombocytopenia 11/25/2023 Social History Tobacco Use Types Packs/Day Years Used Date Smoking Tobacco: Never Smokeless Tobacco: Never Tobacco Cessation:Counseling Given: Not Answered Alcohol Use Standard Drinks/Week Comments Never 0 (1 standard drink = 0.6 oz pur e alcohol) AUDIT-C Answer Date Recorded Frequency of Alcohol Consumption Never 06/20/2018 Average Number of Drinks Not on file 019 Frequency of Binge Drinking Not on file 06/11 Comments No Sex and Gender Information Value Date Recorded Sex Assigned at Not on file Legal Sex Female 10:53 PM CDT Gender Identity Not on file Sexual Orientation Not on file Last Filed Vital Signs Vital Sign Reading Time Taken Comments Blood Pressure 98/63 09/08/2024 9:09 AM CDT Pulse 79 09/08/2024 9:09 AM CDT Temperature 36.6 C (97.9 F) 09/08/2024 9:09 AM CDT Respiratory Rate 20 09/08/2024 9:09 AM CDT Oxygen Saturation 91% 09/08/2024 9:09 AM CDT Inhaled Oxygen Concentration - - Weight 78 kg (172 lb) 09/08/2024 9:09 AM CDT Height 152.4 cm (5') 09/08/2024 9:09 AM CDT Body Mass Index 33.59 09/08/2024 9:09 AM CDT Plan of Treatment Upcoming Encounters Date Type Department Care Team (Late st Contact Info) Description 09/01/2025 3:30 PM CDT [facility] [address] [place] [address] Angie Matthews September, PAC [address] [place] [address] Discharge Disposition: Discharged to home or Selfcare 09/08/2025 3:50 PM CDT [facility] [address] [place] [address] Angie Matthews September, PAC [address] [place] [address] Discharge Disposition: Discharged to home or Selfcare Health Maintenance Due Date Last Done Comments Hepatitis C Virus (HCV) Screening 2004 Human Papillomavirus (HPV) Immunization (1 - 3-dose series) 10/02/2019 Meningococcal B Immunization (1 of 2 - Standard) 2020 Welcome to Medicare (IPPE) G0402 09/11/2024 Influenza Immunization (#1) 12/12/202401/12, 04/01/2018, 01/12/2017, Additional history exists SARS-COV-2 Immunization (1 - 2024- season) 2024 Respiratory Syncytial Virus (RSV) Immunization (Adult) (1 - 1-dose 75+ series) 10/02/2079 Hepatitis B Immunization Completed 007, 02/05/2005, 2004, Additional history exists Hepatitis A Immunization Discontinued 01/08/2007, 04/14 Measles Mumps Rubella (MMR) Immunization Discontinued 10/30/2009, 05/08/2006 Polio (IPV) Immunization Discontinued 010, 05/08/2006, 02/05/2005, Additional history exists Varicella Immunization Completed 10/30/2009, 2006 DTaP/Tdap/Td Immunization Discontinued 2016, 10/30/2009, 01/08/2007, Additional history exists Meningococcal Immunization (ACWY) Aged Out 07/31/2016 No longer eligible based on patient's age to complete this topic TdaP Immunization Completed 07/31/2016 Pneumococcal Immunization Combined Aged Out 11/18/2016, 10/30/2009, 05/08/2006, Additional history exists No longer eligible based on patient's age to complete this topic Rotavirus Immunization Aged Out No lo nger eligible based on patient's age to complete this topic Insurance [place] Care Teams Diesel Pile Hammer Operator Relationship Specialty Start Date End Date Eamon Ballard MD [address] [place] [id number] PCP - General Pediatrics 06/20/18
--- OUTSIDE RECORDS SUMMARY | 2025-03-28 16:01 | XMS_ITS | Encounter Summary ---
Author Organization [facility] Address [address] [place] [address] Phone Care Team Providers Care Public Speaker Name Role Phone Eamon Ballard MD Primary Care Provider Encounter Details Date Type Department Care Team (Latest Contact Info) Description 10/11/2024 Transcribe Orders [facility] [address] [place] [address] [place] [address] [facility] [address] [place] [address] Other specified hypothyroidism (Primary Dx); Down's syndrome Social History Tobacco Use Types Packs/Day Years Used Date Smoking Tobacco: Never Smokeless Tobacco: Never Alcohol Use Standard Drinks/Week Comments Never 0 [...] on file Sexual Orientation Not on file documented as of this encounter Plan of Treatment Upcoming Encounters Date Type Department Care Team (Late st Contact Info) Description 09/01/2025 3:30 PM CDT [facility] [address] [place] [address] Angie Matthews Kylee, PAC [address] [place] [address] Discharge Disposition: Discharged to home or Selfcare 09/08/2025 3:50 PM CDT Office Visit [facility] [address] [place] [address] Byron Angie Kylee, PAC [address] [place] [address] Discharge Disposition: Discharged to home or Selfcare Scheduled Orders Name Type Priority Associated Diagnoses Orde r Schedule THYROXINE (T4) FREE Lab Routine Other specified hypothyroidism Down's syndrome Expected: 10/11/2024, Expires: 10/11/2025 THYROID STIMULATING HORMONE (TSH) Lab Routine Other specified hypothyroidism Down's syndrome Expected: 10/11/2024, Expires: 10/11/2025 documented as of this encounter Visit Diagnoses Diagnosis Other specified hypothyroidism- Primary Down's syndrome documented in this encounter Care Teams Public Speaker Relationship Specialty Start Date End Date Eamon Ballard MD [address] [place] [id number] PCP - General Pediatrics 06/20/18 documented as of this encounter
== END 2025-03-28 14:52 | disposition home or self-care (01) ==
PROVIDERS: Emergency Provider Registered Nurse
DX: J03.90 Acute tonsillitis, unspecified (principal); R05.9 Cough, unspecified; F84.0 Autistic disorder; Q90.9 Down syndrome, unspecified; J45.909 Unspecified asthma, uncomplicated; Z95.2 Presence of prosthetic heart valve
CPT/HCPCS: 87081; 87880; 99203; G0463